=== PATIENT | female | born 2000 | race Two or more races ===

== ENCOUNTER 2023-11-21 22:57 | Emergency (ER) | payer OTHER, SELFPAY ==
[2023-11-21 23:03] VITALS: BP 123/90; PULSE 87; RESP 16; TEMP 36.5; O2SAT 100
--- NOTE | 2023-11-22 01:18 | ED.ANXIETY ---
HPI - Anxiety General Chief Complaint: Anxiety Stated Complaint: Panick attack Time Seen by Provider: 11/22/23 00:41 History of Present Illness HPI narrative: 23-year-old female with reported history of anxiety depression presents to emergency department for panic attack. Patient states around 9:00 p.m. she is in the parking lot of her school when she began to feel this overwhelming sense of doom and like she was going to . She contacted a friend who brought her to the emergency department for further evaluation. Upon my evaluation the patient states she feels better. She cannot identify any triggers that cause her to feel this way. She states she has a history panic attacks in the past this feels the same. She is prescribed sertraline 50 mg daily but ran out of her medications 2-3 weeks ago and has not gotten them refilled because her psychiatrist is in [place] and she is here for school. She denies SI or HI, auditory or visual hallucinations, drug or alcohol use. Related Data Allergies Allergy/AdvReac Type Severity Reaction Status Date / Time No Known Allergies Allergy Verified 11/21/23 23:03 Review of Systems Review of Systems: All systems reviewed & are unremarkable except as noted in HPI and below Exam Narrative: GENERAL: Well-appearing, well-nourished, and in no acute distress. HEAD: Normocephalic, atraumatic. ENT: Nares clear, no rhinorrhea or epistaxis. Mucous membranes moist. NECK: Supple. CHEST: Clear to auscultation. No respiratory distress. HEART: Regular rate and rhythm. No murmur heard. Normal peripheral pulses. ABDOMEN: Soft, nontender, nondistended, normal active bowel sounds. EXTREMITIES: Normal range of motion. No edema. SKIN: Warm, dry, no rash. NEURO: No focal deficits. Alert and oriented x3 PSYCH: Anxious appearing, avoiding eye contact, denies SI or HI, not responding to internal stimuli Course Vital Signs Vital signs: Vital Signs Temperature 97.7 F 11/21/23 23:03 Pulse Rate 87 11/21/23 23:03 Respiratory Rate 16 11/21/23 23:03 Blood Pressure 123/90 11/21/23 23:03 Pulse Oximetry 100 11/21/23 23:03 Temperature 97.7 F 11/21/23 23:03 Pulse Rate 87 11/21/23 23:03 Respiratory Rate 16 11/21/23 23:03 Blood Pressure 123/90 11/21/23 23:03 Pulse Oximetry 100 11/21/23 23:03 MDM - Anxiety MDM Narrative Medical decision making narrative: 23-year-old female with history of anxiety, depression and panic attacks presents to emergency department for panic attack that occurred at 9:00 p.m. this evening. See HPI for further history. Upon my evaluation patient states she feels much better. Triage vitals are normal. She does appear anxious on my evaluation. She denies SI or HI, EtOH or drug abuse, auditory visual hallucinations. She admits to not having her sertraline for a couple of weeks because she has not been able to get it filled locally due to her psychiatrist being in [place]. I refilled her sertraline and also prescribed hydroxyzine p.r.n for panic attacks. I advised her to follow closely with her psychiatrist and have them send medications locally. I discussed strict ED return precautions. She is agreeable to plan verbalized understanding. Discharged in stable condition. Discharge Plan Discharge Clinical Impression: Panic attack Patient Disposition: Home, Self-Care Condition: Stable Instructions: Antibiotic Form, Anxiety (ED) Additional Instructions: You were evaluated in the emergency department after a panic attack. Your exam is reassuring. I sent your Zoloft to the pharmacy, please take these as directed. I have also sent medications to take as needed when he feel like an anxiety attack is coming on. Please contact her psychiatrist and discussed filling her medications locally. Return to the emergency department if you develop thoughts of harming herself or other people, or other concerning symptoms. Prescriptions: New
[2023-11-22 01:41] VITALS: BP 121/77; PULSE 71; RESP 18; O2SAT 98
== END 2023-11-22 01:42 | disposition home or self-care (01) ==
PROVIDERS: Emergency Provider Physician Assistant
DX: F41.0 Panic disorder [episodic paroxysmal anxiety] (principal)
CPT/HCPCS: 99283